=== PATIENT | female | born 1970 | race Caucasian/White ===

== ENCOUNTER 2017-02-07 09:13 | Emergency (ER) | payer MEDICARE ==
[2010-09-10 09:57] VITALS: BMI 32.3
[2017-02-07 09:49] LABS: BASOPHILS 0.3 % (0-2); HEMATOCRIT 45.8 % (36.0-48.0); HEMOGLOBIN 15.9 g/dL (12-16); IMMATURE GRANULOCYTES 0.3 % (0-5); LYMPHOCYTES 33.3 % (15-50); MCH 30.1 pg (26.0-34.0); MCHC 34.7 g/dL (31.0-37.0); MCV 86.7 fL (80.0-100.0); MEAN PLATELET VOLUME 10.7 fL (7.4-10.4); MONOCYTES 7.2 % (2-11); NEUTROPHILS 57.9 % (40-80); PLATELET COUNT 166 10x3/uL (130-400); RBC 5.28 10x6/uL (4.00-5.40); RDW 13.1 % (11.5-14.5); WBC 10.3 10x3/uL (4.8-10.8)
[2017-02-07 10:06] LABS: ALBUMIN 3.9 g/dL (3.4-5.0); ANION GAP 12.1 mmol/L (8-16); BILIRUBIN - TOTAL 0.3 mg/dL (0.2-1.3); CALCIUM 10.2 mg/dL (8.5-10.1); CARBON DIOXIDE 26.9 mmol/L (21.0-32.0); CREATININE - SERUM 1.1 mg/dL (0.6-1.3); PROTEIN - SERUM 8.6 g/dL (6.4-8.2)
[2017-02-07 11:14] LABS: APPEARANCE CLEAR (CLEAR); BILIRUBIN NEGATIVE (NEGATIVE); COLOR YELLOW (YELLOW); GLUCOSE NEGATIVE (NEGATIVE); KETONE NEGATIVE (NEGATIVE); LEUKOCYTE ESTERASE NEGATIVE (NEGATIVE); NITRITE NEGATIVE (NEGATIVE); PROTEIN NEGATIVE (NEGATIVE); SPECIFIC GRAVITY 1.015 (1.005-1.020); UROBILINOGEN NORMAL (NORMAL)
== END 2017-02-07 12:59 | disposition home or self-care (01) ==
LOC: D.ER 09:13
PROVIDERS: Emergency Medicine
DX: G89.18 Other acute postprocedural pain (principal); R11.10 Vomiting, unspecified; E11.9 Type 2 diabetes mellitus without complications; R00.0 Tachycardia, unspecified